=== PATIENT | male | born 2000 | race American Indian/Alaskan Native ===

== ENCOUNTER 2024-04-12 19:59 | Emergency (ER) | payer OTHER, SELFPAY ==
[2024-04-12 22:00] VITALS: BP 110/78; PULSE 72; RESP 14; TEMP 36.7; O2SAT 98
--- NOTE | 2024-04-12 22:38 | ED_ITS ---
HPI - Extremity Injury (Upper) General Chief Complaint: Extremity Injury, Upper Stated Complaint: Ring stuck on finger Time Seen by Provider: 04/12/24 21:52 History of Present Illness HPI narrative: 23-year-old male presents to the emergency department for a ring stuck to his left middle finger. No injury or trauma. Denies pain. Review of Systems Review of Systems: All systems reviewed & are unremarkable except as noted in HPI and below Exam Narrative: GENERAL: Well-appearing, well-nourished, and in no acute distress. HEAD: Normocephalic, atraumatic. EYES: EOMI. ENT: Nares clear, no rhinorrhea or epistaxis. Mucous membranes moist. NECK: Supple. CHEST: Clear to auscultation. No respiratory distress. HEART: Regular rate and rhythm. No murmur heard. Normal peripheral pulses. EXTREMITIES: Normal range of motion. ring to the left 3rd finger. Full active and passive range of motion of the finger. Cap refill less than 2. Sensation intact. SKIN: Warm, dry, no rash. NEURO: No focal deficits. Alert and oriented x3 Procedures Foreign Body Removal Foreign Body #1: Foreign Body Removal Date: 04/12/24 Foreign Body Removal Time: 22:41 Time Out Performed: yes Site: left Description of foreign body: other (ring) Sedation/Analgesia: none Technique: other (ring cutter) Confirmed by:: direct visualization Complications: none Post-procedure exam: awake, alert Neurovascular: normal capillary fill, distal light touch sensation intact, distal motor function normal and no signs of compartment syndrome MDM - Extremity Injury (Upper) MDM Narrative Medical decision making narrative: 23-year-old male presents to emergency department for a ring stuck to his left 3rd finger. Vitals are stable. Exam is significant for a ring stuck to the left 3rd finger. Attempted to remove the ring with lubrication without improvement. Ring was removed with a ring cutter without complications. Patient remains neurovascularly intact. No injury to extremity. Patient discharged in stable condition. Discharge Plan Discharge Clinical Impression: Foreign body Patient Disposition: Home, Self-Care Condition: Stable Instructions: Antibiotic Form Follow-up/Referrals: PHYSICIAN,VOICE TEACHER [Primary Care Provider] -
[2024-04-12 22:45] VITALS: BP 106/73; PULSE 66; RESP 16; TEMP 36.8; O2SAT 97
== END 2024-04-12 22:53 | disposition home or self-care (01) ==
PROVIDERS: Emergency Provider Physician Assistant
DX: S60.443A External constriction of left middle finger, initial encounter (principal); W49.04XA Ring or other jewelry causing external constriction, initial encounter
CPT/HCPCS: 99282